=== PATIENT | male | born 1965 | race Caucasian/White ===

== ENCOUNTER 2018-12-19 00:07 | Emergency (ER) | payer BC ==
[~2018-12-19] VITALS: Ht 175.3 cm; Wt 102.3 kg
[2018-12-19] MEDS ORDERED: IBUPROFEN600 MG PO (02:50)
[2018-12-19] MEDS ORDERED: ORPHENADRINE100 MG PO (02:50)
[2018-12-19 03:05] VITALS: BP 134/77
== END 2018-12-19 03:12 | disposition home or self-care (01) | DRG 605 ==
LOC: ED 00:07
DX: S60.222A Contusion of left hand, initial encounter (principal); M25.442 Effusion, left hand; W01.0XXA Fall on same level from slipping, tripping and stumbling without subsequent striking against object, initial encounter; Y92.009 Unspecified place in unspecified non-institutional (private) residence as the place of occurrence of the external cause